=== PATIENT | male | born 1950 | race African-American/Black ===

== ENCOUNTER 2024-07-22 16:42 | Emergency (ER) | payer OTHER ==
[~2024-07-22] VITALS: Ht 185.4 cm; Wt 77.3 kg
[2024-07-22 16:50] VITALS: TEMP 98.3
[2024-07-22] MEDS: NAPROXEN 500 MG TABLET PO ONE (18:27)
[2024-07-22] MEDS: CEPHALEXIN MONOHYDRATE 500 MG CAPSULE PO ONE (18:27)
[2024-07-22 18:38] VITALS: BP 129/82; PULSE 71; RESP 17; O2SAT 98
== END 2024-07-22 18:40 ==
LOC: EMS 16:42
DX: L03.113 Cellulitis of right upper limb (principal)
CPT/HCPCS: 99283